=== PATIENT | male | born 1960 | race Caucasian/White ===

== ENCOUNTER 2018-05-09 14:12 | Emergency (ER) | payer OTHER ==
[2018-05-09 15:36] VITALS: BP 123/79
--- NOTE | 2018-05-09 15:52 | UC ---
General HPI - HPI Summary HPI Summary: 58-year-old male comes in with a chief complaint of feeling off balance numbness in his scalp and generalized weakness and fatigue which started with a sudden onset yesterday. Denies any focal weakness. Feels like his eyes are not focusing as well as he normally does he has been able to walk.. Several days ago he was working on his truck and a generalized body aches afterwards to include neck pain. His neck pain is gradually improved over the last several days but he still has some neck pain. Does not have any headache. No complaint of any chest pain or shortness of breath. Been eating and drinking well. Normal bowels and bladder. In the urgent care he has felt a little bit of pressure in his chest. - History of Current Complaint Chief Complaint: UCGeneralIllness Stated Complaint: NUMBNESS IN HEAD,WEAKNESS IN LEGS Time Seen by Provider: 05/09/18 14:36 Pain Intensity: 0 - Allergy/Home Medications Allergies/Adverse Reactions: Allergies Allergy/AdvReac Type Severity Reaction Status Date / Time No Known Allergies Allergy Verified 05/09/18 14:49 Home Medications: Home Medications Divalproex Sodium [Depakote] 500 mg PO QPM 05/09/18 [History Confirmed 05/09/18] Loratadine 10 mg PO DAILY 05/09/18 [History Confirmed 05/09/18] SUMAtriptan TAB* [Imitrex TAB*] 50 mg PO SEE INSTRUCTIONS PRN 05/09/18 [History Confirmed 05/09/18] PMH/Surg Hx/FS Hx/Imm Hx Previously Healthy: Yes Neurological History: Migraine - Surgical History Surgical History: Yes Surgery Procedure, Year, and Place: right inquinal hernia repair 1991 - Family History Known Family History: Positive: Non-Contributory - Social History Alcohol Use: Rare Substance Use Type: None Smoking Status (MU): Never Smoked Tobacco Type: Smokeless Tobacco Amount Used/How Often: daily Length of Time of Smoking/Using Tobacco: 25 yrs Have You Smoked in the Last Year: No Review of Systems All Other Systems Reviewed And Are Negative: Yes Constitutional: Positive: Negative Skin: Positive: Negative Eyes: Positive: Blurred Vision ENT: Positive: Negative Respiratory: Positive: Negative Cardiovascular: Positive: Chest Pain Gastrointestinal: Positive: Negative Motor: Positive: Weakness Neurovascular: Positive: Negative Neurological: Positive: Weakness, Paresthesia Psychological: Positive: Negative Is Patient Immunocompromised?: No Physical Exam Triage Information Reviewed: Yes Appearance: Well-Appearing, No Pain Distress, Well-Nourished Vital Signs: Initial Vital Signs Temp 98.7 F 05/09/18 14:36 Pulse 52 05/09/18 14:36 Resp 20 05/09/18 14:36 BP 111/76 05/09/18 14:36 Pulse Ox 97 05/09/18 14:36 Vital Signs Reviewed: Yes Eye Exam: Normal Eyes: Positive: Conjunctiva Clear ENT: Positive: Pharynx normal Neck exam: Normal Neck: Positive: Supple Respiratory: Positive: Lungs clear, Normal breath sounds, No respiratory distress Cardiovascular: Positive: RRR Abdomen Description: Positive: Nontender, Soft Musculoskeletal Exam: Normal Musculoskeletal: Positive: Strength Intact, ROM Intact Neurological Exam: Normal Neurological: Positive: Alert, Muscle Tone Normal, Other: - NIH 0 Psychological Exam: Normal Psychological: Positive: Normal Response To Family, Age Appropriate Behavior Skin Exam: Normal Diagnostics - EKG Cardiac Rate: NL - AT 1424, Bradycardia - 55BPM Cardiac Rhythm: Sinus: Normal Ectopy: None ST Segment: Normal Course/Dx - Course Course Of Treatment: Patient's symptoms are not obviously a stroke on examination and by history. However the patient reports feeling off balance and having some neck pain and having some paresthesia that's bilateral on the scalp. Concern of a neurologic cause is a possibility. Because of the possible neurologic cause and our inability to reevaluate cardiac causes I recommended the patient go the emergency room for further evaluation and treatment. Patient declined ambulance transport. His stated drive him to the emergency department. Because the patient's neurologist is Dr. Cullen for [facility] the plan is to drive to [facility] emergency department. I did discuss this with the physician video production assistant on in the emergency department. - Diagnoses Provider Diagnosis: Paresthesia, Weakness Discharge - Sign-Out/Discharge Documenting (check all that apply): Patient Departure All imaging exams completed and their final reports reviewed: No Studies - Discharge Plan Condition: Stable Disposition: HOME-RECOMMEND TO ED Patient Education Materials: Paresthesia (ED), Weakness (ED) Referrals: Stephanie Singh [Primary Care Provider] - Additional Instructions: GO DIRECTLY TO THE EMERGENCY DEPARTMENT FOR FURTHER EVALUATION. - Billing Disposition and Condition Condition: STABLE Disposition: Home-Recommend to ED
--- OUTSIDE RECORDS SUMMARY | 2018-05-09 16:05 | XMS REPORT | Continuity of Care Document ---
:1960 External Reference #:[id number] Author Name Stephanie Singh, DEO Address [address] [place] [address] Care Team Providers Name Role Phone Stephanie Singh NP Care Team Information Access Tech Unavailable Payers Date Identification Numbers Payment Provider Subscriber Policy Number: [id number] Idania Steward PayID: [id number] [address] [place] [address] Advance Directives Description No Information Available Problems Date Description Provider Status Onset: 04/13/2014 Allergic rhinitis due to pollen Stephanie Singh SHIPPING ROOM HELPER Active Onset: 06/16/2011 Depressive disorder Stephanie Singh SHIPPING ROOM HELPER Active Onset: 04/30/2018 Vitamin D deficiency Stephanie Singh SHIPPING ROOM HELPER Active Onset: 04/14/2014 Tobacco user Stephanie Singh, SHIPPING ROOM HELPER Active Onset: 04/14/2014 Obstructive sleep apnea syndrome BrendaioStephanie hernandez, SHIPPING ROOM HELPER Active Onset: 04/14/2014 Migraine Stephanie Singh, SHIPPING ROOM HELPER Active Family History Date Family Member(s) Observation Comments General Heart Disease mother Social History Type Date Description Comments Sex Unknown Education Higest level completed, Bachelor's Degree Marital Status Lives With Spouse Lives 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 Occupation Sales Smokeless Tobacco Current Smokeless Tobacco User, Uses Occasionally ETOH Use Denies alcohol use Tobacco Use Start: Unknown Patient has never smoked Allergies, Adverse Reactions, Alerts Description No Known Drug Allergies Medications Medication Date Status Form Strength Qnty SIG Indications Ordering Provider Fluoxetine 10/21/ Active Tablets 20mg 90tab Take 1 F32.9 Digiovann HCL 2016 s Tablet Daily a, (Taken In Stephanie, Combination SHIPPING ROOM HELPER With Fluoxetine 40Mgfor A Totaldaily Dose Of 60MG/Day) Fluoxetine 10/21/ Active Capsules 40mg 90cap Take 1 F32.9 Digiovann HCL 2016 s Capsule a, Daily (In Stephanie, Combination SHIPPING ROOM HELPER With Hpbmakehyq19 mg For Total Daily Dose Of 60MG) Magnesium 10/15/ Active Capsules 500mg OTC 1 daily G43.909 Digiovann 2014 a, Stephanie, SHIPPING ROOM HELPER Naproxen 05/26/ Active Tablets 550mg 60tab 1 by mouth 719.42 Digiovann Sodium 2015 s every 12 a, hours for 2 Stephanie, weeks then SHIPPING ROOM HELPER as needed Loratadine 04/14/ Active Tablets 10mg 1 daily J30.1 Digiovann 2014 a, Stephanie, SHIPPING ROOM HELPER Sumatriptan / Active Tablets 100mg 10tab 1 by mouth G43.909 Digiovann Succinate 0000 s at onset of a, migraine, Stephanie, may repeat SHIPPING ROOM HELPER in 2 hours Depakote ER / Active Tablets ER 500mg 2 po hs, G43.909 [place], 0000 24HR 04/2015 Carmencita R Doxycycline 07/10/ Hx Capsules 100mg 2caps 2 by mouth S70.361A Digiovann Monohydrate 2018 - x1 today a, Stephanie, 2018 SHIPPING ROOM HELPER Fluoxetine 10/21/ Hx Capsules 10mg 540ca 6 po daily F32.9 Digiovann HCL 2016 - ps a, 10/21/ Stephanie, 2015 SHIPPING ROOM HELPER Flonase 10/15/ Hx Suspension 50mcg/Act OTC 1 spray per J30.1 Digiovann 2015 - nostril a, 11/03/ every day Stephanie, 2014 regularly SHIPPING ROOM HELPER Fluoxetine 09/24/ Hx Tablets 60mg 90tab take 1 F32.9 Digiovann HCL 2012 - s tablet daily a, Stephanie, 2015 SHIPPING ROOM HELPER Flonase 02/22/ Hx Suspension 50mcg/Act 3Unit 1 spray per 477.0 Digiovann 2011 - s nostril a, 05/26/ every day Stephanie, 2015 regularly SHIPPING ROOM HELPER Gabapentin / Hx Capsules 300mg 1 daily at [facility], 0000 - hs, increase Carmencita R 04/15/ to 2 daily 2016 after 1 month Immunizations CPT Code Status Date Vaccine Lot # [id number] Given 11/22/2011 Afluria Or Fluvirin Flu Vac Intramuscular 11158 Given 05/10/2010 Tdap (Adacel) Ages 7 And Above Only 55519 Refused 04/30/2017 Influenza Vac, Quadrivalent, Split, 0.5mL Dosage, Im Use Vital Signs Date Vital Result Comment 04/30/2018 9:02am Weight 241.38 lb Heart Rate 76 /min BP Systolic 116 mmHg BP Diastolic 70 mmHg Respiratory Rate 16 /min Height 75.5 inches 6'3.50" RAJENDRA JONES 04/30/18 BMI (Body Mass Index) 29.8 kg/m2 07/10/2017 4:13pm Body Temperature 98.4 F tympanic Weight 242.00 lb Heart Rate 68 /min BP Systolic 110 mmHg BP Diastolic 64 mmHg Respiratory Rate 16 /min Height 75.5 inches 6'3.50" 04/30/17 BMI (Body Mass Index) 29.8 kg/m2 04/30/2017 2:01pm Weight 242.00 lb Heart Rate 66 /min BP Systolic 118 mmHg BP Diastolic 76 mmHg Respiratory Rate 14 /min Height 75.5 inches 6'3.50" 04/30/17 BMI (Body Mass Index) 29.8 kg/m2 04/24/2016 8:26am Weight 236.00 lb Heart Rate 70 /min BP Systolic 116 mmHg BP Diastolic 72 mmHg Respiratory Rate 18 /min Height 75 inches 6'3" BMI (Body Mass Index) 29.5 kg/m2 10/22/2015 8:35am Weight 232.00 lb Heart Rate 76 /min BP Systolic 130 mmHg BP Diastolic 82 mmHg Respiratory Rate 18 /min Height 75 inches 6'3" BMI (Body Mass Index) 29.0 kg/m2 04/19/2015 8:29am Weight 232.00 lb Heart Rate 70 /min BP Systolic 120 mmHg BP Diastolic 84 mmHg Respiratory Rate 18 /min Height 75 inches 6'3" BMI (Body Mass Index) 29.0 kg/m2 10/15/2014 8:03am Weight 220.00 lb Heart Rate 58 /min BP Systolic 100 mmHg BP Diastolic 60 mmHg Respiratory Rate 18 /min Height 75 inches 6'3" BMI (Body Mass Index) 27.5 kg/m2 05/26/2014 1:01pm Weight 228.00 lb Heart Rate 70 /min BP Systolic 122 mmHg BP Diastolic 72 mmHg Respiratory Rate 18 /min Height 75 inches 6'3" BMI (Body Mass Index) 28.5 kg/m2 04/14/2014 8:30am Weight 223.00 lb Down 4# Heart Rate 52 /min BP Systolic 132 mmHg L/Reg BP Diastolic 88 mmHg L/Reg Respiratory Rate 17 /min Height 75 inches 6'3" BMI (Body Mass Index) 27.9 kg/m2 02/13/2014 1:52pm Weight 227.00 lb Heart Rate 68 /min BP Systolic 120 mmHg BP Diastolic 72 mmHg Respiratory Rate 18 /min Height 75 inches 6'3" 10/10/2013 10:58am Weight 214.00 lb Heart Rate 66 /min BP Systolic 108 mmHg BP Diastolic 74 mmHg Respiratory Rate 18 /min Height 75 inches 6'3" Results Test Date Facility Test Result H/L Range Note Lipid 10/15/2015 [facility] Cholesterol 144 mg/dL 50-199 Triglycerides 93 mg/dL 30-200 HDL 30 mg/dL 29-71 1 Chol/ HDL Ratio 4.8 ratio 4.0-6.7 VLDL 19 mg/dL 2-29 LDL (Calc) 95 mg/dL 20-99 2 Basic (BMP) 10/15/2015 [facility] Sodium 137 mmol/L 134-142 Potassium 4.4 mmol/L 3.5-5.2 Chloride 100 mmol/L 97-109 Carbon Dioxide 30 mmol/L 24-34 Glucose 97 mg/dL 70-105 BUN 13 mg/dL 6-26 Creatinine 1.2 mg/dL 0.5-1.4 Calcium 9.3 mg/dL 8.5-10.2 Anion Gap 11 mmol/L 6-14 Non Maria Teresa Egfr >60 >60 3 Maria Teresa Egfr >60 >60 4 Laboratory test finding 10/15/2015 [facility] TSH 1.81 uIU/mL 0.35-4.94 Laboratory test finding 04/15/2015 [facility] Valproic Acid 63 ug/mL (50- 110) 5 CBC With Auto Diff 04/15/2015 [facility] WBC 6.3 K/uL 4.1-11.0 RBC 4.76 M/uL 4.60-6.10 Hemoglobin 14.8 gm/dL 13.5-18.0 Hematocrit 43.6 % 41.0-53.0 MCV 91.6 fL 80.0-97.0 MCH 31.2 pg 27.0-32.0 MCHC 34.0 g/dL 32.0-36.0 RDW 12.7 % 11.5-14.5 PLT Count 195 K/ul 140-400 Neutrophil 54.0 % 35.0-75.0 Lymphocyte 35.8 % 16.0-52.0 Monocyte 8.5 % 2.0-10.0 Eosinophil 1.1 % 0.0-5.0 Basophil 0.6 % 0.0-4.0 Abs Neutrophils 3.4 K/uL 2.1-8.0 Abs Lymphocytes 2.3 K/uL 0.8-5.5 Abmon 0.5 K/uL 0.1-1.0 Abs Eosinophils 0.1 K/uL 0.0-0.5 Abs Basophils 0.0 K/uL 0.0-0.3 Hepatic Panel (LFT) 04/15/2015 [facility] Total Protein 6.9 g/dL 6.0-8.0 Albumin 4.4 g/dL 3.6-4.9 Total Bilirubin 0.6 mg/dL 0.1-1.3 Direct Bilirubin 0.1 mg/dL 0.0-0.4 Alkaline Phosphatase 70 U/L 24-140 Alt 24 U/L 3-42 Ast 19 U/L 8-42 Lipid 06/07/2014 [facility] Cholesterol 164 mg/dL 50-199 6 Triglycerides 50 mg/dL 30-200 HDL 40 mg/dL 29-71 7 Chol/ HDL Ratio 4.1 ratio 4.0-6.7 VLDL 10 mg/dL 2-29 LDL (Calc) 114 mg/dL High 20-99 8 Laboratory test finding 06/07/2014 [facility] Ferritin 270.3 ng/ml 24.0- 336.0 Iron Panel 06/07/2014 [facility] Iron, Total 126 g/dL 65-175 Transferrin 242.7 mg/dL 203.0-362.0 Tibc (calc) 340 g/dL 261-478 % Iron Saturation 37.1 % 13.0-45.0 Laboratory test finding 06/07/2014 [facility] TSH 0.94 uIU/mL 0.35-4.94 Vit D,25 Hydroxy 61 ng/mL 31-100 Basic (BMP) 06/07/2014 [facility] Sodium 138 mmol/L 134-142 Potassium 4.5 mmol/L 3.5-5.2 Chloride 105 mmol/L 97-109 Carbon Dioxide 29 mmol/L 24-34 Glucose 85 mg/dL 70-105 BUN 17 mg/dL 6-26 Creatinine 1.1 mg/dL 0.5-1.4 Calcium 9.4 mg/dL 8.5-10.2 Anion Gap 9 mmol/L 6-14 Non Maria Teresa Egfr >60 >60 9 Maria Teresa Egfr >60 >60 10 Laboratory test finding 03/27/2013 N2N/CCD Import % Baso. 1.9 % 0.0-2.0 % Eos. 1.7 % 0.0-4.0 % Lymph 33 % 20-44 % [place] 9.9 % 2.0-10.0 % Attila 54 % 50-70 A/G Ratio 1.6 ratio 1.6-2.2 Absolute Baso. 0.1 K/ul 0.0-0.3 Absolute Eos. 0.1 K/ul 0.0-0.5 Absolute Lymph. 1.8 K/ul 0.8-4.8 Absolute [place]. 0.5 K/ul 0.1-1.0 Absolute Attila. 2.95 K/ul 2.05-7.63 Albumin 4.6 g/dL 3.5-5.0 Alk. Phos. 98.0 U/L 30.0-126.0 Alt 32.0 U/L 21.0-72.0 Anion Gap 13.0 mmol/L 10.0-20.0 Ast 26.0 U/L 17.0-59.0 BUN 14.0 mg/dL 9.0-21.0 BUN/Creat Ratio 12.7 ratio 12.0-20.0 Calcium 9.5 mg/dL 8.7-10.5 Chloride 106.0 mmol/L 98.0-107.0 Co2 22.0 mmol/L 22.0-30.0 Creatinine-Serum 1.1 mg/dL 0.8-1.5 Globulin 2.8 g/dL 2.7-4.3 Glucose 88.0 mg/dL 75.0-110.0 HCT 44.6 % 37.0-51.0 HGB 15.7 Gm/dl 12.0-16.0 MCH 32.0 pg 26.0-32.0 MCHC 35.2 g/dL 31.0-36.0 MCV 90.8 Fl 80.0-97.0 MPV 5.8 fL Low 6.0-10.0 PLT 259 K/ul 140-440 Potasium 4.2 mmol/L 3.6-5.0 RBC 4.9 M/ul 4.2-6.3 RDW 11.1 % Low 11.5-14.5 Sodium 141.0 mmil/L 137.0-145.0 TSH 1.35 uIU/ml 0.50-6.00 Total Bilirubin 0.6 mg/dL 0.2-1.3 Total Protein 7.4 g/dL 6.3-8.2 Vitamin D 39.0 ng/mL 30.0-100.0 WBC 5.5 K/ul 4.1-10.9 eGFR 80.3 mi/minper1.73 11 Lipid Panel 03/27/2013 N2N/CCD Import Chol/HDL Ratio 4.6 ratio Cholesterol 179.0 mg/dL 50.0-199.0 HDL 39.0 mg/dL 29.0-67.0 LDL, Calculated 126.4 mg/dL 20.0-129.0 Triglycerides 68.0 mg/dL 30.0-249.0 vLDL 13.6 ng/dL Testosterone,Free/Weakly 03/27/2013 N2N/CCD Import Testosterone,%Free/ Weakly 17.1 9.0-46.0 Bound BND % Testosterone,Free+Weakly Bound 86.9 ng/dL 40.0-250.0 12 Testosterone,Serum 508 ng/dL 348-1197 1 Per NCEP ATP III Guidelines: Results lower than 40 mg/dL are suggestive of increased risk for coronary artery disease. Results > or=to 60 mg/dL are considered a negative risk factor. 2 Per NCEP ATP III Guidelines: Normal Population <130 Patients with medical conditions: CHD/DM Optimal: <100 Borderline high: 130-159 High: 160-189 Very high: >189 3 Concerning GFR Guidelines: Normal function or mild renal disease, if clinically at risk: >/=60 mL/min Moderately decreased: 30-59 Severely decreased: 15-29 Renal failure: <15 Glomerular Filtration Rate (GFR) is estimated based on the MDRD equation, which assumes a steady state for creatinine as recommended by the National Kidney Disease Education Program in conjunction with the National Institutes of Health and the National Kidney Foundation. Clinical conditions in which it may be necessary to measure GFR by using clearance methods include extremes of age and body size, severe malnutrition or obesity, diseases of skeletal muscle, paraplegia or quadriplegia, vegetarian diet, rapidly changing kidney function, and calculation of the dose of potentially toxic drugs that are excreted by the kidneys. 4 Concerning GFR Guidelines for Americans: Normal function or mild renal disease, if clinically at risk: >/=60 mL/min Moderately decreased: 30-59 Severely decreased: 15-29 Renal failure: <15 5 Unless otherwise specified, testing performed by [facility] [address] [place] [id number] 6 to be done 1 week prior to 04/2015 OV 7 Per NCEP ATP III Guidelines: Results lower than 40 mg/dL are suggestive of increased risk for coronary artery disease. Results > or=to 60 mg/dL are considered a negative risk factor. 8 Per NCEP ATP III Guidelines: Normal Population <130 Patients with medical conditions: CHD/DM Optimal: <100 Borderline high: 130-159 High: 160-189 Very high: >189 9 Concerning GFR Guidelines: Normal function or mild renal disease, if clinically at risk: >/=60 mL/min Moderately decreased: 30-59 Severely decreased: 15-29 Renal failure: <15 Glomerular Filtration Rate (GFR) is estimated based on the MDRD equation, which assumes a steady state for creatinine as recommended by the National Kidney Disease Education Program in conjunction with the National Institutes of Health and the National Kidney Foundation. Clinical conditions in which it may be necessary to measure GFR by using clearance methods include extremes of age and body size, severe malnutrition or obesity, diseases of skeletal muscle, paraplegia or quadriplegia, vegetarian diet, rapidly changing kidney function, and calculation of the dose of potentially toxic drugs that are excreted by the kidneys. 10 Concerning GFR Guidelines for Americans: Normal function or mild renal disease, if clinically at risk: >/=60 mL/min Moderately decreased: 30-59 Severely decreased: 15-29 Renal failure: <15 11 For -Bruneian patients multiply result by 1.180 12 Performed at: - [facility] [address], [place], [place] [id number] Marble Installation Helper: Marlen Tai MD, Phone: [phone] Performed at: - [facility] [address] [id number] Marble Installation Helper: Nicolas Miller MD, Phone: [phone] Procedures Date Code Description Status 04/04/2013 90033 Measure Blood Oxygen Level Single Determination Completed 07/09/2012 82823 Colonoscopy Flexible Diagnostic Completed 07/09/2012 13728066 Colonoscopy Completed 04/23/2012 31596 Measure Blood Oxygen Level Single Determination Completed 02/14/2012 04504 Measure Blood Oxygen Level Single Determination Completed 11/22/2011 41957 Visual Screening Test Completed 11/22/2011 03396 Screening Hearing Test Completed 11/01/2010 86115 Electrocardiogram Complete Completed 05/10/2010 62943 Visual Screening Test Completed 05/10/2010 56899 Screening Hearing Test Completed Encounters Type Date Location Provider Dx Diagnosis Office Visit 04/30/2018 [facility] Digkyravanna, Z00.00 Encntr for general 9:00a Stephanie, SHIPPING ROOM HELPER adult medical exam w/o abnormal findings F32.9 Major depressive disorder, single episode, unspecified G47.33 Obstructive sleep apnea (adult) (pediatric) G43.909 Migraine, unsp, not intractable, without status migrainosus J30.1 Allergic rhinitis due to pollen Z72.0 Tobacco use E55.9 Vitamin D deficiency, unspecified Z12.5 Encounter for screening for malignant neoplasm of prostate Z68.29 Body mass index (BMI) 29.0-29.9, adult Office Visit 07/10/2017 4:00p [facility] Samantha, S70.361A Insect bite Stephanie, SHIPPING ROOM HELPER (nonvenomous), RIGHT thigh, initial encounter Office Visit 04/30/2017 2:00p [facility] Saravanjosé manuel, Z00.00 Encntr for general Stephanie, SHIPPING ROOM HELPER adult medical exam w/o abnormal findings G47.33 Obstructive sleep apnea (adult) (pediatric) G43.909 Migraine, unsp, not intractable, without status migrainosus F32.9 Major depressive disorder, single episode, unspecified E78.2 Mixed hyperlipidemia J30.1 Allergic rhinitis due to pollen Z72.0 Tobacco use R94.5 Abnormal results of liver function studies Z12.5 Encounter for screening for malignant neoplasm of prostate Z68.29 Body mass index (BMI) 29.0-29.9, adult Office Visit 04/24/2016 8:30a [facility] Stephanie Singh, Z00.00 Encntr for general SHIPPING ROOM HELPER adult medical exam w/o abnormal findings Z68.29 Body mass index (BMI) 29.0-29.9, adult F32.9 Major depressive disorder, single episode, unspecified G47.33 Obstructive sleep apnea (adult) (pediatric) G43.909 Migraine, unsp, not intractable, without status migrainosus J30.1 Allergic rhinitis due to pollen Z72.0 Tobacco use Office Visit 10/22/2015 8:30a [facility] Stephanie Singh, F32.9 Major depressive SHIPPING ROOM HELPER disorder, single episode, unspecified G47.33 Obstructive sleep apnea (adult) (pediatric) G43.909 Migraine, unsp, not intractable, without status migrainosus J30.1 Allergic rhinitis due to pollen Z72.0 Tobacco use Z68.30 Body mass index (BMI) 30.0-30.9, adult Office Visit 04/19/2015 8:30a [facility] Stephanie Singh, F32.9 Major depressive SHIPPING ROOM HELPER disorder, single episode, unspecified G47.33 Obstructive sleep apnea (adult) (pediatric) G43.909 Migraine, unsp, not intractable, without status migrainosus J30.1 Allergic rhinitis due to pollen Z72.0 Tobacco use Z68.30 Body mass index (BMI) 30.0-30.9, adult Office Visit 10/15/2014 8:00a Stephanie Wolf, SHIPPING ROOM HELPER 311 Depressive Disorder Not Elsewhere Spec 327.23 Apnea, Obstructive Sleep Apnea Adult & Pediatric 346.90 Migraine Unspec W/O Intractable 477.0 Rhinitis Allergic Due To Pollen 305.1 Tobacco Use Disorder Office Visit 05/26/2014 1:00p Stephanie Wolf, 719.42 Pain Joint Upper Arm SHIPPING ROOM HELPER Office Visit 04/14/2014 8:30a Stephanie Wolf, V70.0 Exam (Adult ) General SHIPPING ROOM HELPER Medical Routine AT Health Care Facility 311 Depressive Disorder Not Elsewhere Spec 477.0 Rhinitis Allergic Due To Pollen 346.90 Migraine Unspec W/O Intractable 327.23 Apnea, Obstructive Sleep Apnea Adult & Pediatric 305.1 Tobacco Use Disorder Plan of Treatment Future Appointment(s):05/02/2019 8:30 am - Stephanie Singh NP at [facility]04/30 - Stephanie Singh NPZ00.00 Encounter for general adult medical examination without abnoComments:Discussed general health maintenance, alcohol in moderation, safety. Tdap due olonoscopy [id number] cessation of tobacco useRecommend annual flu vaccineFollow up:1 yr. for routine PE, sooner PRN for illness or injury, nonfasting labs 1 week prior to OV [facility] Major depressive disorder, single episode, unspecifiedNew Labs :Comprehensive Met Panel-[facility], Ordered: 04/30/18CBC with Auto Diff-[facility]g, Ordered : 04/30/18Comments:Continue Fluoxetine.Continue routine exercise.G47.33 Obstructive sleep apnea (adult) (pediatric)Comments:Continue CPapF/U as planned with ENTG43.909 Migraine, unspecified, not intractable, without status migraComments:Continue daily Magnesium.Continue current dose of DepakoteContinue prn use of Sumatriptan, call whenrefill needed.Maintain adequate fluids.J30.1 Allergic rhinitis due to pollenComments:Continue daily use of CuglpbcrP91.0 Tobacco useComments:Encouraged cessation of use of chewE55.9 Vitamin D deficiency, unspecifiedComments:Continue current hxhokzawyqJ06.5 Encounter for screening for malignant neoplasm of prostateNew Labs:PSA, Ordered: 04/30/18Z68.29 Body mass index (BMI) 29.0-29.9, adultComments :Encouraged well balanced healthy diet with portion control.
== END 2018-05-09 16:03 | disposition home health service (06) ==
LOC: UCCORT 14:12
DX: R20.2 Paresthesia of skin (principal); R53.1 Weakness; M54.2 Cervicalgia; G43.909 Migraine, unspecified, not intractable, without status migrainosus; Z79.899 Other long term (current) drug therapy
CPT/HCPCS: 93005; 99202; G0463

== ENCOUNTER 2018-05-09 16:54 | Emergency (ER) | payer OTHER ==
[2018-05-09] MEDS ORDERED: NS 0.9% 1000 ML** 2,000 ML IV ONE (18:25)
--- NOTE | 2018-05-09 18:53 | ED ---
Dizziness - HPI Summary HPI Summary: Pt is a 58 y/o M presenting to the ED with his by private car, after being seen at [facility] by Dr. Thakur, with a chief complaint of numbness and lightheadedness onset yesterday at 1600 while he was at work. The pt reported sudden onset of lightheadedness like he may pass out, weakness in legs on exertion, and numbness in the top of his head. He felt like he had to eat however food did not help, so he took Imitrex tabs that he has prescribed by Dr. James for migraines (although he did not have a headache, and these were not typical migraine symptoms for him), and went to sleep around 1930. He woke up this am around 0630 and the symptoms had not alleviated, and he did not develop a migraine headache. Today, he went to [facility] [place] where he developed a mild diffuse chest pressure while there, that is still somewhat present, rated at 2 or 3 out of 10. He also notes on 05/05/18 he was working on his truck for about eight hours and is wondering if these symptoms could point to a strained muscle or ligament. He reports posterior neck soreness that developed after this activity. He also reports blood in urine at his most recent physical with Dr Osborn in [place]. He did not develop a headache or migraine, as they typically develop as incredibly painful all over his head,without aura or nausea. Pt takes daily depakote per Dr. James for migraine prophylaxis, and magnesium. He denies a present headache. He still has the numbness "burning" on top of his head, and the lightheadedness. He has mild chest pain, and mild posterior neck pain, both of which he rates as a "2". He denies any hx of GA or fhx of CVA. He reports fhx of CHF on maternal side and GA on paternal side. He reports surgical hx of R inguinal hernia. Vital signs while in room: HR 50 bpm, BP 102/75, 98% O2. - History Of Current Complaint Chief Complaint: EDNeurologicalDeficit Stated Complaint: NUMBNESS/TINGLING HEAD AND LEGS PER PT Time Seen by Provider: 05/09/18 18:18 Hx Obtained From: Patient, Family/B[employer] - Last Known Well Date: 05/08/18 1600 Onset/Duration: Suddenly - yesterday around 1600 Timing: Constant Severity Initially: Mild Severity Currently: Mild Character: Lightheaded, Weak Aggravating Factor(s): Exertion Alleviating Factor(s): Rest Associated Signs And Symptoms: Positive: Negative - headache, Chest Pain, Other : - weakness when walking, neck stiffness/pain posteriorly - Allergies/Home Medications Allergies/Adverse Reactions: Allergies Allergy/AdvReac Type Severity Reaction Status Date / Time No Known Allergies Allergy Verified 05/09/18 17:00 PMH/Surg Hx/FS Hx/Imm Hx Previously Healthy: No Cardiovascular History: Denies: Hx Myocardial Infarction GI History: Reports: Other GI Disorders - inguinal hernia Neurological History: Reports: Hx Migraine Psychiatric History: Reports: Hx Anxiety, Hx Depression - Surgical History Surgery Procedure, Year, and Place: right inquinal hernia repair 1991 Infectious Disease History: No Infectious Disease History: Denies: Traveled Outside the [place] in Last 30 Days - Family History Known Family History: Positive: Cardiac Disease - CHF maternal, GA paternal Negative: Other - CVA - Social History Occupation: Employed Full-time Lives: With Family Alcohol Use: Rare Hx Substance Use: No Substance Use Type: Reports: None Hx Tobacco Use: No Smoking Status (MU): Never Smoked Tobacco Type: Smokeless Tobacco Do You Chew or Dip Tobacco: Yes Amount Used/How Often: daily Have You Chewed or Dipped Tobacco in the LAST YEAR: Yes Length of Time of Smoking/Using Tobacco: 25 yrs Have You Smoked in the Last Year: No Review of Systems Negative: Fever Eyes: Negative Positive: Chest Pain Respiratory: Negative Gastrointestinal: Negative Positive: no symptoms reported Positive: Myalgia - back of neck Skin: Negative Neurological: Other - dizziness Positive: Weakness, Numbness - top of head. Negative: Headache Psychological: Normal All Other Systems Reviewed And Are Negative: Yes Physical Exam - Summary Physical Exam Summary: Appearance: Well-appearing, mild pain distress, well-nourished Skin: Warm, color reflects adequate perfusion, dry Head: Normal Head/Face inspection, atraumatic Eyes: Conjunctiva clear, PERRL EOMI, no nystagmus ENT: Normal inspection, TM's clear, Pharynx clear Neck: Supple, no nodes, no JVD, tender posterior spines especially distally Respiratory: Lungs clear, normal breath sounds, no respiratory distress Cardio: RRR, No murmur, pulses normal, brisk capillary refill Abdomen: Soft, nontender Bowel sounds: Present Musculoskeletal: Strength Intact/ROM intact, no calf tenderness, no edema. Psychological: Normal Neuro: Alert, O x 3, no neuro deficit, NIH 0 (see scale) GCS 15 Triage Information Reviewed: Yes Vital Signs On Initial Exam: Initial Vitals Temp Pulse Resp BP Pulse Ox 97.4 F 57 17 131/79 98 05/09/18 16:57 05/09/18 16:57 05/09/18 16:57 05/09/18 16:57 05/09/18 16:57 Vital Signs Reviewed: Yes - [place] Coma Scale Best Eye Response: 4 - Spontaneous Best Motor Response: 6 - Obeys Commands Best Verbal Response: 5 - Oriented Coma Scale Total: 15 Diagnostics - Vital Signs Vital Signs Temp Pulse Resp BP Pulse Ox 05/09/18 18:25 97 05/09/18 18:09 52 102/75 96 05/09/18 18:08 53 96 05/09/18 16:57 97.4 F 57 17 131/79 98 - Laboratory Result Diagrams: 05/09/18 19:12 05/09/18 19:12 Lab Statement: Any lab studies that have been ordered have been reviewed, and results considered in the medical decision making process. - EKG 1843 Cardiac Rate: Bradycardia - 52bpm EKG Rhythm: Sinus Bradycardia ST Segment: Normal Ectopy: None EKG Comparison: No Significant Change Summary of EKG Findings: An EKG at 1843 shows sinus bradycardia at 52bpm, reveals nml AV/IV CT, nml QTc, and nml axis. No acute changes. No change compared with today at 1443 at [facility] [place]. National Institutes Of Health - NIH Scale Level of Consciousness: Alert/Keenly Responsive Ask Patient the Month and His/Her Age: Both Correct Ask Pt to Open/Close Eyes and Taxicab Dispatcher/Release Non-Paretic Hand: Both Correctly Best Gaze (Only Horizontal Eye Movement): Normal Visual Field Testing: No Visual Loss Facial Paresis-Pt to Smile & Close Eyes or Grimace Symmetry: Normal/Symmetrical Motor Function - Right Arm: No Drift-Holds 10 Seconds Motor Function - Left Arm: No Drift-Holds 10 Seconds Motor Function - Right Leg: No Drift-Holds 10 Seconds Motor Function - Left Leg: No Drift-Holds 10 Seconds Limb Ataxia-Must be out of Proportion to Weakness Present: Absent Sensory (Use Pinprick to Test Arms/Legs/Trunk/Face): Normal Best Language (Describe Picture, Name Items): No Aphasia Dysarthria (Read Several Words): Normal Extinction and Inattention: No Abnormality Total Score: 0 Re-Evaluation - Re-Evaluation First Eval Re-Evaluation Time: 22:10 Comment: Reviewed CT results with the pt. Dizzy Course/Dx - Course Course Of Treatment: Pt is a 58 y/o M presenting to the ED with his with a chief complaint of dizziness onset yesterday at 1600 while he was at work. The pt reported sudden onset of lightheadedness like he may pass out, weakness in legs on exertion, and numbness in the top of his head. He took an imitrex that he has prescribed for migraines and went to sleep around 1930. He woke up this am around 0630 and the symptoms had not alleviated, and he did not develop a migraine. He denies a present headache. He denies any hx of GA or fhx of CVA. He reports fhx of CHF on maternal side and GA on paternal side. He reports a R inguinal hernia. Vital signs while in room: HR 50 bpm, BP 102/75, 98% O2. An EKG at 1843 shows sinus bradycardia at 52bpm, reveals nml AV/IV CT, nml QTc, and nml axis. No acute changes. No change compared with today at 1443 at [facility] [place]. The pt will be signed out to Dr. Avitia at 1900 05/09/[address], CXR, and CTA Head/Neck. at 1940, pt has no change in his symptoms, awaiting CT's. Labs are unremarkable. Troponin is zero. - Diagnoses Differential Diagnosis/HQI/PQRI: Benign Paroxysmal Positional Vertigo, Coronary Artery Disease, CVA, Dysrhythmia, Labyrinthitis, Medication Reaction, Metabolic Abnormality, Myocardial Infarction, Other - migraine Provider Diagnoses: Numbness, Chest pain, Neck pain, bilateral posterior Discharge - Sign-Out/Discharge Documenting (check all that apply): Patient Departure, Sign-Out Patient Signing out patient TO: Domonique Avitia Patient Received Moderate/Deep Sedation with Procedure: No - Discharge Plan Condition: Stable Disposition: HOME Patient Education Materials: Paresthesia (ED) Referrals: Stephanie Osborn [Primary Care Provider] - Carmencita James MD [Medical Doctor] - Additional Instructions: PLEASE FOLLOW UP WITH Dr. James, neurologist, TOMORROW. RETURN TO THE EMERGENCY DEPARTMENT FOR CHANGING OR WORSENING SYMPTOMS - Billing Disposition and Condition Condition: STABLE Disposition: Home - Attestation Statements Document Initiated by Scribe: Yes Documenting Scribe: Chanelle Quijano Provider For Whom Rajan is Documenting (Include Credential): Dr. Reina Mak MD. Scribe Attestation: IChanelle, scribed for Dr. Reina Mak MD. on 05/09/18 at 2221. Scribe Documentation Reviewed: Yes Provider Attestation: The documentation as recorded by the scribe, Chanelle Quijano accurately reflects the service I personally performed and the decisions made by me, Dr. Reina Mak MD. Status of Scribe Document: Viewed
--- NOTE | 2018-05-09 19:14 | ED ---
Progress - Progress Note Progress Note: This pt was signed out from Dr. Mak at shift change, pending disposition, awaiting CXR, Brain CT, CTA head/neck. Chest XR, as read by ED physician No acute process Pending official radiology report. Brain CT, as read by radiologist IMPRESSION: Negative noncontrast head CT. Head CTA, as read by radiologist IMPRESSION: 1. Minimal inferior frontal sinus disease. 2. Negative CTA head. No significant stenosis or occlusion. Neck CTA, as read by radiologist IMPRESSION: 1. Minimal bilateral upper lobe infiltrate or atelectasis. 2. Left maxillary sinus disease. 3. Negative CTA neck. No significant stenosis or occlusion. Dr. Avitia has reviewed these reports. Re-Evaluation - Re-Evaluation First Eval Re-Evaluation Time: 22:10 Comment: Reviewed CT results with the pt. Pt still has numbness over his frontal part of his head bilatearlly. Course/Dx - Course Course Of Treatment: This pt was signed out by Dr. Mak, pending disposition, awaiting images. Brain CT is negative. CTA Head/Neck shows 1. Minimal bilateral upper lobe infiltrate or atelectasis. 2. Left maxillary sinus disease. 3. Negative CTA neck. No significant stenosis or occlusion. I reviewed the results with the pt. On re-eval pt still has numbness over his frontal part of his head bilaterally. He will be discharged home with follow up from his neurologist, Dr. James, tomorrow. Pt is instructed to return to the ED for any worsening or new symptoms. He understands and agrees. - Diagnoses Provider Diagnoses: Numbness Discharge - Sign-Out/Discharge Documenting (check all that apply): Patient Departure - Discharge home, Receiving Sign-Out Receiving patient FROM: Reina Mak Patient Received Moderate/Deep Sedation with Procedure: No - Discharge Plan Condition: Stable Disposition: HOME Patient Education Materials: Paresthesia (ED) Referrals: Stephanie Singh [Primary Care Provider] - Carmencita James MD [Medical Doctor] - Additional Instructions: PLEASE FOLLOW UP WITH Dr. James, neurologist, TOMORROW. RETURN TO THE EMERGENCY DEPARTMENT FOR CHANGING OR WORSENING SYMPTOMS - Attestation Statements Document Initiated by Scribe: Yes Documenting Scribe: Amanda Ricardo Provider For Whom Scribe is Documenting (Include Credential): Domonique Avitia MD Scribe Attestation: Amanda Sullivan, scribed for Domonique Avitia MD on 05/10/18 at 0329. Status of Scribe Document: Ready
[2018-05-09 19:19] LABS: ABS Basophils 0.1 10^3/ul (0-0.2); ABS Eosinophils 0.1 10^3/ul (0-0.6); ABS Lymphocytes 2.8 10^3/ul (1.0-4.8); ABS Monocytes 0.7 10^3/ul (0-0.8); ABS Neutrophils 2.5 10^3/ul (1.5-7.7); ABS Nucleated RBC 0 10^3/ul; Eosinophil % 1.5 %; Hematocrit 42 % (42-52); Hemoglobin 14.3 g/dl (14.0-18.0); Lymphocyte % 45.5 %; Mean Corpuscular HGB Conc 34 g/dl (31-36); Mean Corpuscular Hemoglobin 31 pg (27-31); Mean Corpuscular Volume 92 fL (80-94); Mean Platelet Volume 7.1 fL (7.4-10.4); Nucleated Red Blood Cells % 0.1; Platelet Count 228 10^3/ul (150-450); Red Blood Count 4.59 10^6/ul (4.00-5.40); Red Cell Distribution Width 13 % (10.5-15); White Blood Count 6.2 10^3/ul (3.5-10.8)
[2018-05-09 19:27] LABS: Activated Partial Thrombo Time 35.3 seconds (26.0-36.3); INR 0.98 (0.77-1.02)
[2018-05-09 19:38] LABS: ALT 34 U/L (7-52); AST 30 U/L (13-39); Albumin/Globulin Ratio 1.5 (1-3); Alkaline Phosphatase 69 U/L (34-104); Anion Gap 3 mmol/L (2-11); BUN/Creatinine Ratio 15.4 (8-20); Blood Urea Nitrogen 16 mg/dL (6-24); CO2 Carbon Dioxide 29 mmol/L (22-32); Calcium 8.9 mg/dL (8.6-10.3); Chloride 106 mmol/L (101-111); EGFR African American 89.1 (>60); EGFR Non-African American 73.6 (>60); Globulin 2.6 g/dL (2-4); Glucose 89 mg/dL (70-100); Potassium 4.9 mmol/L (3.5-5.0); Sodium 138 mmol/L (135-145); Total Protein 6.6 g/dL (6.4-8.9)
[2018-05-09 19:39] LABS: Alcohol < 10 mg/dL (<10)
[2018-05-09 19:41] LABS: Barbiturates Urine Screen None Detected (None Detect); Benzodiazepine Urine Screen None Detected (None Detect); Urine Cannabinoids Screen None Detected (None Detect)
[2018-05-09 19:49] LABS: Urine Appearance Clear; Urine Bilirubin Negative (Negative); Urine Blood Negative (Negative); Urine Color Yellow; Urine Glucose Negative (Negative); Urine Ketones Trace (Negative); Urine Nitrite Negative (Negative); Urine Protein Negative (Negative); Urine Urobilinogen Negative (Negative)
[2018-05-09] MEDS ORDERED: Iohexol 350* (CONTRAST) 500 ML MDV IV ONE (19:49)
[2018-05-09 22:27] VITALS: BP 116/84
== END 2018-05-09 22:26 | disposition home or self-care (01) ==
LOC: ED 16:54
DX: R20.0 Anesthesia of skin (principal); R07.89 Other chest pain; M54.2 Cervicalgia; J32.0 Chronic maxillary sinusitis; K40.90 Unilateral inguinal hernia, without obstruction or gangrene, not specified as recurrent; Z82.49 Family history of ischemic heart disease and other diseases of the circulatory system; F17.220 Nicotine dependence, chewing tobacco, uncomplicated
CPT/HCPCS: 36415; 70450; 70496; 70498; 71045; 80053; 80164; 80307; 80320; 81003; 83605; 84484; 85025; 85610; 85730; 93005; 96360; 99283; G0480; Q9967

== ENCOUNTER 2018-09-05 11:14 | Emergency (ER) | payer OTHER ==
--- OUTSIDE RECORDS SUMMARY | 2018-09-05 11:31 | XMS REPORT | Continuity of Care Document ---
:1960 External Reference #:[id number] Author Name Fransico Dengey Care Team Providers Name Role Phone Stephanie Singh FNP Primary Care Physician Unavailable Payers Date Identification Numbers Payment Provider Subscriber Policy Number: [id number] [employer] Ena Steward Group Number: [id number] [address] PayID: [id number] [place] [address] Effective: 2007 Policy Number: [id number] [facility] Patel Steward Expires: 2014 PayID: [id number] [address] [address] [place] [address] Problems Active Problems Provider Date Migraine with aura Carmencita James M.D. Onset: 05/19/2014 Sleep apnea Carmencita James M.D. Onset: 05/19/2014 Obstructive sleep apnea syndrome Dorothy Lou MD Onset: 06/12/2014 Allergic rhinitis Dorothy Lou MD Onset: 06/12/2014 Migraine without aura Carmencita James M.D. Onset: 08/04/2014 Periodic leg movements of sleep Iraida Alex DNP, RN, INTERNAL GRINDER- Onset: 05/15 Family History Date Family Member(s) Observation Comments Father alive and well Mother Rheumatoid Arthritis Mother of congental heart failure Social History Type Date Description Comments Sex Unknown Marital Status Lives With Occupation Currently Working Occupation chef manager Tobacco Use Start: Unknown Never Smoked Cigarettes Tobacco Use Start: Unknown Chewing tobacco Occasionally ETOH Use Rarely consumes alcohol Tobacco Use Start: Unknown Chewing tobacco Occasionally. 09/03/18 considering quitting. Recreational Drug Use Denies Drug Use Tobacco Use Start: Unknown Patient has never smoked Smoking Status Reviewed: 09/03/18 Patient has never smoked Exercise Type/Frequency Exercises rarely Allergies, Adverse Reactions, Alerts Description No Known Drug Allergies Medications Active Medications SIG Qnty Indications Ordering Provider Date Depakote ER 2 tablets by 180tabs Carmencita James, 03/17/2015 500mg mouth every M.D. Tablets ER 24HR night at bedtime. Magnesium Oxide take 1 tablet by Carmencita James, 05/19/2014 500mg mouth a day M.D. Tablets Fluoxetine HCL 1 by mouth every 30tabs Unknown 60mg day Tablets Imitrex take 1 by mouth 36tabs Carmencita James, 100mg Tablets as needed M.D. migraine, may repeat after 2 hours; maximum in 24 hours: 2 tablets; maximum 2 days a week Claritin 1 by mouth every Unknown 10mg Capsules day History Medications Gabapentin take 1 by mouth 60caps G43.101 Carmencita James, 02/16/2015 - 300mg at bedtime, after M.D. 04/12/2015 Capsules 1 month, may increase to 2 tablets. Zofran take 1-2 by mouth 40tabs G43.101 Carmencita James, 05/19/2014 - 4mg every 8 hours, as M.D. 08/02/2015 Tablets need for nausea Levitra 1 tablet qd prn 6tabs Flo Dee 05/26/2009 - 20mg Julian Benavides 05/18/2014 Tablets Aspirin 1 po qd Flo Dee 07/01/2008 - 325mg Julian Benavides 05/18/2014 Tablets Levitra qd prn 12tabs Flo Dee 04/07/2008 - 10mg Julian Benavides 05/26/2009 Tablets Sudafed 1 Tab prn Flo Dee 07/15/2007 - 30mg seasonal Julian Benavides 05/18/2014 Tablets allergies Paxil 1 PO qd 90units Flo Dee - 20mg. Julian Benavides 03/10/2008 Flonase Allergy 2 sprays each Unknown - Relief nares 2x pe day 05/09/2015 50mcg/Act Suspension Immunizations CPT Code Status Date Vaccine Lot # [id number] Given 05/05/2002 Td (History By Patient) Vital Signs Date Vital Result Comment 09/03/2018 9:37am Height 76 inches 6'4" Weight 230.00 lb Heart Rate 54 /min BP Systolic Sitting 122 mmHg Lue reg cuff BP Diastolic Sitting 76 mmHg Lue reg cuff Respiratory Rate 16 /min O2 % BldC Oximetry 96 % room air BMI (Body Mass Index) 28.0 kg/m2 03/26/2018 11:07am Height 76 inches 6'4" Weight 245.00 lb Heart Rate 54 /min BP Systolic Sitting 110 mmHg BP Diastolic Sitting 74 mmHg Respiratory Rate 16 /min Pain Level 0 O2 % BldC Oximetry 98 % BMI (Body Mass Index) 29.8 kg/m2 08/28/2017 8:03am Height 76 inches 6'4" Weight 236.25 lb Heart Rate 54 /min BP Systolic Sitting 116 mmHg Lue large cuff BP Diastolic Sitting 86 mmHg Lue large cuff Respiratory Rate 14 /min O2 % BldC Oximetry 98 % On Ra BMI (Body Mass Index) 28.8 kg/m2 08/06/2017 9:31am Height 76 inches 6'4" Weight 245.00 lb Heart Rate 64 /min BP Systolic Sitting 118 mmHg BP Diastolic Sitting 74 mmHg Respiratory Rate 18 /min Pain Level 0 O2 % BldC Oximetry 97 % Ra BMI (Body Mass Index) 29.8 kg/m2 03/06/2017 9:51am Height 76 inches 6'4" Weight 241.00 lb w/shoes Heart Rate 65 /min BP Systolic Sitting 118 mmHg Ra lg cuff BP Diastolic Sitting 68 mmHg Ra lg cuff O2 % BldC Oximetry 95 % room air BMI (Body Mass Index) 29.3 kg/m2 08/15/2016 9:54am Height 76 inches 6'4" Weight 235.00 lb Heart Rate 66 /min BP Systolic Sitting 118 mmHg BP Diastolic Sitting 78 mmHg Respiratory Rate 16 /min BMI (Body Mass Index) 28.6 kg/m2 05/15/2016 8:00am Height 76 inches 6'4" Weight 240.00 lb Heart Rate 72 /min BP Systolic Sitting 132 mmHg BP Diastolic Sitting 74 mmHg Respiratory Rate 14 /min O2 % BldC Oximetry 98 % BMI (Body Mass Index) 29.2 kg/m2 08/03/2015 9:34am Height 76 inches 6'4" Weight 240.00 lb Heart Rate 58 /min BP Systolic Sitting 106 mmHg BP Diastolic Sitting 80 mmHg BMI (Body Mass Index) 29.2 kg/m2 05/10/2015 9:25am Height 76 inches 6'4" Weight 234.31 lb Heart Rate 69 /min BP Systolic 112 mmHg BP Diastolic 78 mmHg Respiratory Rate 14 /min O2 % BldC Oximetry 98 % BMI (Body Mass Index) 28.5 kg/m2 04/13/2015 8:31am Height 76 inches 6'4" Weight 225.00 lb Heart Rate 64 /min BP Systolic Sitting 104 mmHg BP Diastolic Sitting 72 mmHg BMI (Body Mass Index) 27.4 kg/m2 02/16/2015 8:39am Height 76 inches 6'4" Weight 220.00 lb Heart Rate 62 /min BP Systolic Sitting 110 mmHg BP Diastolic Sitting 60 mmHg Respiratory Rate 17 /min BMI (Body Mass Index) 26.8 kg/m2 02/08/2015 9:59am Height 76 inches 6'4" Weight 220.00 lb Heart Rate 67 /min BP Systolic Sitting 116 mmHg BP Diastolic Sitting 62 mmHg Respiratory Rate 16 /min O2 % BldC Oximetry 98 % BMI (Body Mass Index) 26.8 kg/m2 08/12/2014 8:15am Height 74 inches 6'2" Weight 225.00 lb Heart Rate 64 /min BP Systolic Sitting 114 mmHg BP Diastolic Sitting 62 mmHg Respiratory Rate 18 /min O2 % BldC Oximetry 98 % BMI (Body Mass Index) 28.9 kg/m2 08/04/2014 2:05pm Height 76 inches 6'4" Weight 220.00 lb Heart Rate 64 /min BP Systolic Sitting 96 mmHg BP Diastolic Sitting 78 mmHg BMI (Body Mass Index) 26.8 kg/m2 06/12/2014 8:05am Height 76 inches 6'4" Weight 220.00 lb Heart Rate 64 /min BP Systolic Sitting 120 mmHg BP Diastolic Sitting 82 mmHg Respiratory Rate 18 /min O2 % BldC Oximetry 98 % BMI (Body Mass Index) 26.8 kg/m2 Neck Circumference in inches 19 05/19/2014 11:16am Height 75 inches 6'3" Weight 220.00 lb Heart Rate 68 /min BP Systolic Sitting 100 mmHg BP Diastolic Sitting 82 mmHg BMI (Body Mass Index) 27.5 kg/m2 05/26/2009 4:02pm Height 75 inches 6'3" Weight 209.00 lb Heart Rate 72 /min BP Systolic 106 mmHg BP Diastolic 74 mmHg BMI (Body Mass Index) 26.1 kg/m2 07/01/2008 4:01pm Height 75 inches 6'3" Weight 218.00 lb Heart Rate 52 /min BP Systolic Sitting 106 mmHg BP Diastolic Sitting 70 mmHg BMI (Body Mass Index) 27.2 kg/m2 03/10/2008 10:55am Height 75 inches 6'3" Weight 214.00 lb Heart Rate 56 /min BP Systolic Sitting 102 mmHg BP Diastolic Sitting 74 mmHg BMI (Body Mass Index) 26.7 kg/m2 07/15/2007 9:13am Height 75 inches 6'3" Weight 216.00 lb Heart Rate 64 /min BP Systolic Sitting 120 mmHg BP Diastolic Sitting 80 mmHg BMI (Body Mass Index) 27.0 kg/m2 Results Test Date Facility Test Result H/L Range Note Laboratory test 07/14/2008 [facility] TSH 1.56 MIU/ML 0.34- 5.[address] [place] [address] [phone] C Reactive Protein < 0.5 mg/dL Less Than 0.5 Cyclic Citrullinated Pep Igg <15.6 U () 1 Lyme Disease Serology Negative Negative 2 Laboratory test 03/10/2008 [facility] Testosterone 331.0 175- 781 finding Total ng/[place] [address] [phone] Laboratory test 07/11/2007 [facility] TSH 1.11 0.34-5.60 3 finding 101 MIU/[place] [address] [phone] PSA Screening 0.57 NG/ML 0-4 4 Lipid Profile 07/11/2007 [facility] Triglyceride 73 mg/dL 40- 200 (Trig/Chol/HDL) [address] [place] [address] [phone] Cholesterol 182 mg/dL Less Than 200 5 High Density Lipoprotein 36 mg/dL Low 40-60 6 Cholesterol/HDL Ratio 5.06 AVERAGE High 1-4.97 Low Density Lipoprotein 131 mg/dL High Less Than 100 7 Comp Metabolic Panel 07/11/2007 [facility] Sodium 136 mmol/L 135-[address] [place] [address] [phone] Potassium 4.9 mmol/L 3.5-5.0 Chloride 104 mmol/L 101-111 Co2 (Carbon Dioxide) 30.0 mmol/L 22-32 Anion Gap 2.0 mmol/L 2-11 8 Glucose 99 mg/dL 70-105 BUN 13 mg/dL 6-24 Creatinine 1.2 mg/dL 0.5-1.4 One Over Creatinine 0.83 BUN/Creatinine Ratio 10.8 8-20 Calcium 9.2 mg/dL 8.7-10.2 Total Protein 7.3 GM/DL 6.2-8.1 Albumin 4.4 GM/DL 3.6-5.4 Globulin 2.9 GM/DL 2-4 Albumin/Globulin Ratio 1.5 1-3 Bilirubin Total 0.9 mg/dL 0.4-1.5 Alkaline Phosphatase 77 U/L 39-117 Alt (SGPT) 21 U/L 17-63 Ast (Sgot) 24 U/L 12-42 CBC With 07/11/2007 [facility] White Blood 3.6 CUMM Low 4.8- 10.8 Electronic Diff [address] [place] [address] [phone] Red Cell Count 5.06 CUMM 4.6-6.2 Hemoglobin 15.4 g/dL 14.0-18.0 Hematocrit 44 % 42-52 Mean Corpuscular Volume 87 um3 80-94 Mean Corpuscular Hemoglob 31 pg 27-31 Mean Corpuscular HGB Cone 35 g/dL 32-36 Redcell Distribution WDTH 13 % 10.5-15 Platelet Count 266 CUMM 150-450 Mean Platelet Volume 7.4 um3 7.4-10.4 Gran % 52.0 % 38-83 Lymph % 37.5 % 20-45 Mononuclear % 8.2 % 1-9 Eosinophil % 1.5 % 0-6 Basophil % 0.8 % 0-2 Abs Lymphs 1.4 1.0-4.8 Abs Mononuclear 0.3 0-0.8 Absolute Neutrophil Count 1.9 1.5-7.7 Abs Eosinophils 0.1 0-0.6 Abs Basophils 0 0-0.2 1 -- REFERENCE VALUE -- <20.0 (Negative) 20.0-39.9 (Weak Positive) 40.0-59.9 (Positive) >=60.0 (Strong Positive) Test Performed by: [facility] Dpt of Lab Med and Pathology [address] [place] [id number] Veneer Jointer Offbearer: Adalid Juarez III, M.D. 2 Test Performed by: [facility] Med [facility] Pathology [address] [place] [address] Veneer Jointer Offbearer: Adalid Juarez III, M.D. 3 PATIENT MAY HAVE RESULTS PER DOCTOR'S AUTHORIZATION. Questions regarding this report should be directed to your doctor. 4 * SERUM LEVELS OF PSA MEASURED USING THE [employer] ACCESS HYBRITECH IMMUNOASSAY SHOULD NOT BE INTERPRETED ABSOLUTE EVIDENCE OF THE PRESENCE OR ABSENCE OF DISEASE. THE PSA VALUE SHOULD BE USED IN CONJUNCTION WITH OTHER PERTINENT CLINICAL DIAGNOSTIC PROCEDURES. A PSA value in the range of 0.1 to 0.6 ng/ml is indeterminate if being used as an indicator of recurrent or residual disease. . 5 CHOLESTEROL INTERPRETATION: Desirable: Less than 200 MG/DL Borderline-High Risk: 200-239 MG/DL High-Risk: 240 MG/DL and over 6 HDL INTERPRETATION: Undesirable: High Risk: Less than 40 MG/DL Desirable: Low Risk: Greater than 60 MG/DL 7 LDL INTERPRETATION: Low Risk Optimal Level: LDL Less than 100 MG/DL Near or Above Optimal: LDL 100-129 MG/DL Borderline High Risk: LDL 130-159 MG/DL High Risk: LDL 160-189 MG/DL Very High Risk: LDL Greater than 189 MG/DL 8 Anion gap measurement may be of limited value in the presence of any alkalosis, especially in a combined acid base disorder. . Encounters Type Date Location Provider Dx Diagnosis Office Visit 03/26/2018 Hung James, G43.109 Migraine with 11:00a Neurologic Serv Of M.D. aura, not Strike Operations Officer intractable, w/o status migrainosus G47.61 Periodic limb movement disorder Z79.899 Other electric drill operator (current) drug therapy Office Visit 08/28/2017 Pulmonology And Iraida G47.33 Obstructive sleep 8:15a [facility] Alex, RN, apnea (adult) Strike Operations Officer INTERNAL GRINDER- (pediatric) Office Visit 08/06/2017 Hung James G43.109 Migraine with 9:30a Neurologic Serv M.D. 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 aura, not Strike Operations Officer intractable, w/o status migrainosus Z79.899 Other electric drill operator (current) drug therapy Office Visit 08/15/2016 [place] Carmencita G43.109 Migraine with 9:45a Neurologic Serv Of Cowderjazmine, M.D. aura, not Strike Operations Officer intractable, w/o status migrainosus G47.61 Periodic limb movement disorder Office Visit 05/15/2016 Pul[facility]ology And Iraida G47.33 Obstructive sleep 8:00a [facility] Alex, RN, apnea (adult) [facility] INTERNAL GRINDER-BC (pediatric) G47.61 Periodic limb movement disorder Office Visit 08/03/2015 [place] Carmencita G43.109 Migraine with 9:30a Neurologic Serv Of Cowderjazmine M.D. aura, not Strike Operations Officer intractable, w/o status migrainosus G47.61 Periodic limb movement disorder Office Visit 05/10/2015 9:15a Pulmonology And Dorothy G47.33 Obstructive sleep Sleep Services Of MD Carmine apnea (adult) Strike Operations Officer (pediatric) Office Visit 04/13/2015 8:45a [place] Carmencita G43.109 Migraine with Neurologic Serv Oleksandrderjazmine M.D. aura, not Of Strike Operations Officer intractable, w/o status migrainosus G43.009 Migraine w/o aura, not intractable, w/o status migrainosus G47.61 Periodic limb movement disorder Z79.899 Other electric drill operator (current) drug therapy Office Visit 02/16/2015 [place] Carmencita G43.101 Migraine with 8:45a Neurologic Serv Of Oleksandrderjazmine M.D. aura, not Strike Operations Officer intractable, with status migrainosus G47.61 Periodic limb movement disorder Office Visit 02/08/2015 9:30a Pulmonology And Dorothy G47.33 Obstructive sleep Sleep [facility] Of [facility] Carmine apnea (adult) Strike Operations Officer (pediatric) Office Visit 08/12/2014 8:15a [facility] Dorothy 327.23 Obstructive Sleep [facility] Carmine Apnea Adult & [employer] Operations Officer Pediatric 477.9 Rhinitis Allergic Cause Unspec Office Visit 08/04/2014 [facility] Tse 327.23 Obstructive 2:00p Neurologic Serv Of Julian James Sleep Apnea [facility] Pediatric 346.02 Migraine W/Aura,W/Out Mention Of Intractable Migraine 782.0 Skin Sensation Disturbance Office Visit 06/12/2014 8:15a Pulmonology And Dorothy 327.23 Obstructive Sleep Sleep Services Of MD Carmine Apnea Adult & [facility] Pediatric 477.9 Rhinitis Allergic Cause Unspec Office Visit 05/19/2014 [facility] Tse 346.02 Migraine 11:00a Neurologic Serv Of Julian James W/Aura,W/Out Strike Operations Officer Mention Of Intractable Migraine 780.57 Unspecified Sleep Apnea 782.0 Skin Sensation Disturbance Office Visit 05/26/2009 3:40p DO Not Use Strike Operations Officer Flo E. 214.1 Lipoma Other Skin [place] M.D. And Subcutaneous Tissue 719.44 Pain Joint Hand Office Visit 07/01/2008 3:30p [facility] Flo E. 719.49 Pain Joint AT [place] Benavides M.D. [facility] 780.79 Malaise And Fatigue Other Office Visit 03/10/2008 10:15a [place] [facility] Flo E. 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 Office Visit 07/15/2007 9:00a [place] [facility] Flo E. V70.0 Examination Assoc AT Julian Benavides [facility] Routine AT Health Care Facility Plan of Treatment Future Appointment(s):09/09/2019 8:15 am - Iraida Alex DNP, RN, INTERNAL GRINDER-BC at [facility]09/03/2018 - Iraida Alex DNP, RN, INTERNAL GRINDER- BCG47.33 Obstructive sleep apnea (adult) (pediatric)New Orders:Sleep-Homecare, Ordered: 09/03/18Comments:Sleep Apnea - Antoni NPSG 08/01/12 BMI 27 wt 222# AHI 16.9/hourOn CPAP AHI 4.3/hour, normalFollow up:1 yearRecommendations: Continue PAP device, Benefitting and compliant with treatment. Cleaning Wipe off mask daily (baby wipe-no scent, or warm water) Clean mask, tubing, filter, and water chamber weekly in mild no scent dish soap and water. Hang to dry. If you have any sleepiness while driving you MUST avoid operating a vehicle or machinery. If you have difficulty with your equipment, or need to replace your mask or hoses, please contact your homecare agency. A weight change of 20 pounds or more may have an effect onyour equipment; if you are experiencing problems please call for an appointment. If you have any further questions, please call the [facility] at [phone].f17.220 Nicotine dependence, chewing tobacco, uncomplicatedRecommendations:Recommend quitting
[2018-09-05 11:37] VITALS: BP 111/74
[2018-09-05] MEDS ORDERED: methylPREDNISolone 125 MG* 2 ML VIAL IM ONE (12:13)
--- NOTE | 2018-09-05 12:26 | UC ---
Skin Complaint HPI - HPI Summary HPI Summary: Pt has rash to legs(left worse than right). Beleives he got into some hogweed. States it is very itchy. - History of Current Complaint Chief Complaint: UCSkin Time Seen by Provider: 09/05/18 12:05 Stated Complaint: LEFT LEG CONCERN Hx Obtained From: Patient Onset/Duration: Sudden Onset, Lasting Days - 3 Skin Exposure Onset/Duration: Days Ago - 3 Timing: Constant Onset Severity: Mild Current Severity: Moderate Pain Intensity: 0 Location: Diffuse Character: Swelling, Pruritus, Redness, Raised, Painful Aggravating Factor(s): Humidity, Touch Associated Signs & Symptoms: Positive: Rash Related History: Possible Reaction to: Environmental Exposure - Allergy/Home Medications Allergies/Adverse Reactions: Allergies Allergy/AdvReac Type Severity Reaction Status Date / Time No Known Allergies Allergy Verified 09/05/18 11:37 PMH/Surg Hx/FS Hx/Imm Hx Previously Healthy: Yes - Surgical History Surgical History: Yes Surgery Procedure, Year, and Place: right inquinal hernia repair 1991 - Family History Known Family History: Positive: Cardiac Disease - CHF maternal, [place] paternal Negative: Other - CVA - Social History Alcohol Use: None Substance Use Type: None Smoking Status (MU): Never Smoked Tobacco Type: Smokeless Tobacco Amount Used/How Often: daily Length of Time of Smoking/Using Tobacco: 25 yrs Have You Smoked in the Last Year: No Review of Systems All Other Systems Reviewed And Are Negative: Yes Skin: Positive: Rash Is Patient Immunocompromised?: No Physical Exam Triage Information Reviewed: Yes Appearance: Well-Appearing, Well-Nourished, Pain Distress Vital Signs: Initial Vital Signs Temp 98.2 F 09/05/18 11:32 Pulse 57 09/05/18 11:32 Resp 18 09/05/18 11:32 BP 111/74 09/05/18 11:32 Pulse Ox 97 09/05/18 11:32 Vital Signs Reviewed: Yes Eye Exam: Normal ENT Exam: Normal Dental Exam: Normal Neck exam: Normal Respiratory Exam: Normal Cardiovascular Exam: Normal Abdominal Exam: Normal Musculoskeletal Exam: Normal Neurological Exam: Normal Psychological Exam: Normal Skin: Positive: Rashes - deep red areas with blisters, from the ankle spreading up the leg Course/Dx - Course Course Of Treatment: hx obtained, exam performed, meds reviewed, treated for hogweed exposure - Differential Diagnoses - Skin Complaint Differential Diagnoses: Contact Dermatitis, Poison [place], Poison [place], Urticaria - Diagnoses Provider Diagnosis: Contact dermatitis Discharge - Sign-Out/Discharge Documenting (check all that apply): Patient Departure All imaging exams completed and their final reports reviewed: No Studies - Discharge Plan Condition: Stable Disposition: HOME Prescriptions: predniSONE [Prednisone 20 MG TAB] 20 mg PO DAILY #18 tablet Patient Education Materials: Contact Dermatitis (DC) Referrals: Stephanie Singh [Primary Care Provider] - Additional Instructions: What to do if you are Exposed to Giant Hogweed Wash the affected area thoroughly with soap and COLD water as soon as possible Keep exposed area away from sunlight for 48 hours If a reaction occurs, topical steroids applied early can reduce the severity of the reaction and ease discomfort If sap goes in eyes, rinse them with water and wear sunglasses If a reaction has occurred, the area of skin may be sensitive to sunlight for a few years and you may want to apply sun block or keep the affected area covered from the sun when possible See a physician if you have a reaction or any questions - Billing Disposition and Condition Condition: STABLE Disposition: Home
== END 2018-09-05 12:40 | disposition home or self-care (01) ==
LOC: UCCORT 11:14
DX: L25.9 Unspecified contact dermatitis, unspecified cause (principal); F17.290 Nicotine dependence, other tobacco product, uncomplicated
CPT/HCPCS: 96372; 99212; G0463; J2930